=== PATIENT | female | born 1965 | race Caucasian/White ===

== ENCOUNTER 2018-04-08 14:22 | Inpatient (IN) | payer MEDICARE, MEDICAID ==
[~2018-04-08] VITALS: Ht 167.6 cm; Wt 59.0 kg
[2018-04-08] VITALS (11 sets, daily range): BP systolic 133–226; BP diastolic 71–110
[~2018-04-08 14:22] MED LIST: DOCU-141 PO; FOLI1TAB16 PO; GABA-534 PO; LEVO50TA PO; MULT-24 PO; SPIR25TA PO; THIA100T13 PO
--- NOTE | 2018-04-08 14:27 | NUR ---
[facility] HOME DT ALTERED MENTAL STATUS. PATIENT RECEIVED IN MILD DISTRESS, RESPONDS TO PAIN, OPENS EYES. DOES NOT RESPONDS PATIENT IS SATING 98% ON ROOM AIR. PATIENT IS AFEBRILE. CONNECTED PATIENT TO TELE MONITOR. PENDING MD EVALUATION
--- NOTE | 2018-04-08 14:29 | NUR ---
PATIENT NOTED WITH DEWEY CAST AND LUDY NOTED WITH OBVIOUS DEFORMITY. PER RESCUE REPORT, PT'S NEIGHBOR CALLED RESCUE DT PATIENT HAS NOT BEEN GOING OUT FOR 2 DAYS.
--- NOTE | 2018-04-08 14:29 | NUR ---
RT AT BS
[2018-04-08] MEDS ORDERED: LORAZEPAM INJ 2 MG/ML VIAL ONE (14:56)
[2018-04-08] MEDS ORDERED: IV NS 0.9% 1,000 ML BAG IV ONE ×2 (15:00→18:00)
[2018-04-08] MEDS ORDERED: diphenhydrAMINE HCL 50 MG/ML VIAL IV ONE (15:00)
[2018-04-08] MEDS ORDERED: LORAZEPAM INJ 2 MG/ML VIAL IV ONE (15:00)
[2018-04-08] MEDS ORDERED: HALOPERIDOL LACTATE INJ 5 MG/ML VIAL IM ONE (15:00)
[2018-04-08 15:19] LABS: BASOPHILS # (AUTO) 0.2 /CMM (0.0-0.2); BASOPHILS % (AUTO) 2.8 % (0.0-2.0); EOSINOPHILS % (AUTO) 0.1 % (0.0-6.0); HEMATOCRIT 42 % (33-45); LYMPHOCYTES % (AUTO) 12.6 % (20.0-44.0); MEAN CORPUSCULAR HGB CONC 34 g/dl (31.0-36.0); MEAN CORPUSCULAR VOLUME 110 fL (82-100); MONOCYTES # (AUTO) 0.8 /CMM (0.1-1.30); NEUTROPHILS # (AUTO) 6.3 /CMM (1.8-8.9); NEUTROPHILS % (AUTO) 74.5 % (43.0-81.0); PLATELET COUNT (AUTO) 97 /CMM (150-450); RDW COEFFICIENT OF VARIATION 14.6 (11.5-15.0); RED BLOOD CELL COUNT(AUTO) 3.78 MIL/uL (4.0-5.2); WHITE BLOOD COUNT (AUTO) 8.3 K/uL (4.3-11.0)
[2018-04-08] MEDS ORDERED: diphenhydrAMINE HCL 50 MG/ML VIAL ONE (15:24)
[2018-04-08] MEDS ORDERED: HALOPERIDOL LACTATE INJ 5 MG/ML VIAL ONE (15:24)
[2018-04-08 15:27] LABS: APPEARANCE,URINE Cloudy (CLEAR); BILIRUBIN,URINE Negative (NEGATIVE); BLOOD, URINE Negative Ery/uL (NEGATIVE); COLOR,URINE Dark (YELLOW); KETONES,URINE Trace (NEGATIVE); LEUKOCYTE ESTERASE ,URINE Trace (NEGATIVE); NITRITE, URINE Negative (NEGATIVE); PROTEIN,URINE Negative (NEGATIVE); UGLUCOSE Negative (NEGATIVE)
[2018-04-08 15:31] LABS: CALCIUM, SERUM 9.2 mg/dL (8.5-10.1); CARBON DIOXIDE 28 mmol/L (21-32); CHLORIDE 101 mmol/L (98-107); CREATININE 0.7 mg/dL (0.6-1.3); GLUCOSE 160 mg/dL (74-106); POTASSIUM 3.5 mmol/L (3.5-5.1); SODIUM SERUM 139 mmol/L (136-145); UREA NITROGEN, BLOOD 33 mg/dL (7-18)
--- NOTE | 2018-04-08 15:34 | NUR ---
PATIENT TAKEN TO CT
[2018-04-08 15:35] LABS: INR 1.2 (0.85-1.15)
[2018-04-08 15:36] LABS: ALANINE AMINOTRANSFERASE 119 U/L (12-78); ALBUMIN 2.7 g/dL (3.4-5.0); ALCOHOL, BLOOD < 3 mg/dL (0-0); ALKALINE PHOSPHATASE 122 U/L (46-116); ASPARTATE AMINOTRANSFERASE 214 U/L (15-37); BILIRUBIN,DIRECT 0.7 mg/dL (0.0-0.2); BILIRUBIN,TOTAL 2.5 mg/dL (0.2-1.0); TOTAL PROTEIN, SERUM 7.2 g/dL (6.4-8.2)
[2018-04-08 15:37] LABS: ACETAMINOPHEN 0 ug/ml (10-30); SALICYLATE < 0.2 mg/dL (2.8-20.0)
[2018-04-08 15:38] LABS: TROPONIN I 0.017 ng/mL (0.00-0.056)
[2018-04-08 15:58] LABS: BACTERIA,URINE 4+ /HPF (None Seen); RBC,URINE 0-2 /HPF (0-2); SQUAMOUS EPITHELIAL CELL,UR Rare /HPF (None Seen)
[2018-04-08 15:59] LABS: WBC,URINE 0-3 /HPF (0-3)
[2018-04-08 16:01] LABS: MAGNESIUM 1.8 mg/dL (1.8-2.4)
[2018-04-08 17:02] LABS: THYROID STIMULATING HORMONE 1.171 uIU/mL (0.358-3.74)
--- NOTE | 2018-04-08 17:13 | NUR ---
NG TUBE INSERTED VIA RIGHT NARE. 16FR. 55 AT THE R. NARE. TOLERATED WELL.
--- NOTE | 2018-04-08 17:15 | NUR ---
[facility], MARKETING REPRESENTATIVE
[2018-04-08] MEDS ORDERED: LACTULOSE 10 G/15 ML UDC (PYXIS) GT ONE (17:30)
[2018-04-08] MEDS ORDERED: PIPERACILLIN /TAZOBACTAM 3.375 G in IV D5W 50 ML IV ONE (17:30)
[2018-04-08] MEDS ORDERED: VANCOMYCIN 1 GM in IV D5W 250 ML IV ONE (17:30)
--- NOTE | 2018-04-08 17:37 | NUR ---
[facility]ALIDA 103 FOR ALTERED MENTAL STATUS, ADMITTING
[2018-04-08] MEDS ORDERED: LACTULOSE 10 G/15 ML UDC (PYXIS) ONE (17:48)
--- NOTE | 2018-04-08 18:14 | NUR ---
PATIENT SEEN BREATHING LABORED, O2 SATURATION IN 70'S. MD INFORMED, AT BEDSIDE, INSTRUCTED FOR INTUBATION.
--- NOTE | 2018-04-08 18:16 | NUR ---
PATIENT GIVEN ETOMIDATE 20MG AND ROCC 80MG VIA LEFT HAND, 18G IV. INTUBATED: 7.0 ET, 21CM AT THE LIP. VENT: AC16, TV500, FIO2 100, PEEP 5.
--- NOTE | 2018-04-08 18:18 | NUR ---
PATIENT WAS INTUBATED BY MD FIGUEROA. ET SIZE 7 21 AT THE LIP.
--- NOTE | 2018-04-08 18:27 | NUR ---
INTUBATED WITH 7.0 ET TUBE SECURED @ 21 CM CENTER OF THE LIPS. CO2 DETECTOR CHANGED TO GOLD COLOR POST INTUBATION. BREATH SOUNDS CLEAR BILATERAL WITH SYMMETRICAL CHEST RISE. FOG ON ET TUBE EACH RESUSCITATION BAG. VENT PARAMETERS BELOW ORDER: AC 16 VT 500ML FIO2 100% PEEP +5 VENT IS PLUGGED INTO RED OUTLET WITH ALARMS ON AND FUNCTIONING. WESTUBAG @ BEDSIDE. Addendum: 04/08/18 at 1834 by FELIPE VÁZQUEZ RT Amended: Links added.
[2018-04-08] MEDS ORDERED: Z GUARD REMEDY 2 OZ OINT TP PRN (18:30)
[2018-04-08] MEDS ORDERED: ZOLPIDEM TARTRATE 5 MG TABLET PO PRN (18:30)
[2018-04-08] MEDS ORDERED: ONDANSETRON HCL/PF 4 MG/2 ML VIAL IVP PRN (18:30)
--- NOTE | 2018-04-08 19:11 | NUR ---
RT PT RECEIVED INTUBATED WITH 7.0 @ 21CM ON [facility] VENT WITH NOTED SETTING. ETT PATENT AND SECURE VIA ANCHOR FAST. ALARMS SET AND AUDIBLE. VENT TO RED OUTLET. AMBU BAG AT [facility]. PT TOLERATING SETTING WELL. NO SOB OR DISTRESS NOTED AT THIS TIME. Addendum: 04/08/18 at 1913 by LYNDA FLORES RT Amended: Links added.
--- NOTE | 2018-04-08 19:33 | NUR ---
REPORT GIVEN TO COLBY BARRIGA FOR TED UPON ADMISSION.
--- NOTE | 2018-04-08 20:03 | NUR ---
PT RECEIVED INTUBATED ON VENT FROM ER. 7.0 ETT SECURED AT 21CM AT THE LIP. AC 16,500,100%, +5. VENT ALARMS SET AND AUDIBLE. TIFF SQUIRES AT [facility]. WILL CONTINUE TO MONITOR. Addendum: 04/08/18 at 2006 by VENITA ALFARO RT Amended: Links added.
[2018-04-08] MEDS: LACTULOSE 10 G/15 ML UDC (PYXIS) PO SCH (20:22)
[2018-04-08] MEDS: PANTOPRAZOLE 40 MG VIAL IV SCH (20:22)
[2018-04-08] MEDS: IV D5/0.45 NACL 1,000 ML IV PRN (20:22)
[2018-04-08 20:31] LABS: ABG BASE EXCESS 1.9 mmol/L; ABG OXYGEN SATURATION 98.9 % (92.0-98.5); ABG PH 7.303 (7.350-7.450); ABG PO2 369.5 mmHg (75.0-100.0); AaDO2 282.5 mmHg; MetHb 0.6 % (0.0-1.5); O2Hb 98.3 % (94.0-97.0); PEEP,BG 5 cm H2O; SITE, ABG Left Radial
--- NOTE | 2018-04-08 20:36 | NUR ---
ABG DONE POST INTUBATION. NITHYA LUKE NOTIFIED WITH THE RESULT. pH 7.30, pCO2 61, PaO2 369, HCO3 29. FIO2 TITRATED.
--- NOTE | 2018-04-08 21:00 | NUR ---
ASSISTANT COUNTY ENGINEER - REC'D PT. UNRESPONSIVE TO DEEP TACTILE STIM. NO BILAT. CORNEAL REFLEXES NOTED. MINIMAL GAG DURING SUCTIONING. AFEBRILE. SBP'S ARE LABILE, HR/ST/150'S. EKG DONE. SHOWS ST. DIPRIVAN GTT. STARTED. TITRATING TO COM -FORT. ABG DONE. VENT CHANGES TO AC-20, TV-500, 50% & PEEP 5. RT.NARES NGT IS PATENT TO FLUSH. 2 PIV'S ARE PATENT TO FLUSH. PUPILS ARE 6/SLIGHT SLUGGISH-ALMOST FIXED. BILAT.SOFT RESTRAINTS PLACED ON PT. PER SAFETY PROTOCOL. MCDONALD CATH TO GRAVITY W/GOOD UOP. RUE IS IN A RED CAST. LUE/SHOULDER IS LARGE/DEFORMED. PT'S SISTER JENNYFER PHONED. STATUS UPDATE GIVEN. INSIGHT INTO PT'S HX WAS VERIFIED. CONT.POC.
--- NOTE | 2018-04-08 21:05 | NUR ---
ICU/RN- ID [id number], SLIGHTLY LABORED, AGITATED,BP-213/86, HR-134, DIPRIVAN DRIP STARTED AT 5 MCG/KG/MIN VIA LEFT HAND, WILL MONITOR CLOSELY, USING THE NANNETTE SCALE.
[2018-04-08] MEDS: PROPOFOL 100 ML IV PRN (21:09)
--- NOTE | 2018-04-08 21:29 | NUR ---
ICU/RN-RESULTS OF ABGS DONE BY RT RELAYED TO ACNP Shravan GRIMALDO W/ JOSEONE ORDER TO INCREASE RR TO 20. RT LIZ NOTIFIED.
[2018-04-09] VITALS (48 sets, daily range): BP systolic 114–163; BP diastolic 59–85
--- NOTE | 2018-04-09 | NUR ---
WAX POT TENDER - LACTULOSE STARTED. 2ND BEDBATH ADM. DUE TO [employer] STOOL IS BLACK/STICKY/MELENA. NO BRIGHT RED BLOOD NOTED. CONT. POC.
[2018-04-09] MEDS: LACTULOSE 10 G/15 ML UDC (PYXIS) PO SCH ×6 (01:07→21:25)
[2018-04-09 02:19] LABS: ABG BASE EXCESS 2.4 mmol/L; ABG OXYGEN SATURATION 98.5 % (92.0-98.5); ABG PCO2 34.8 mmHg (35.0-45.0); ABG PH 7.485 (7.350-7.450); ABG PO2 196.2 mmHg (75.0-100.0); AaDO2 193.3 mmHg; COHb 0.3 % (0.5-1.5); MetHb 0.6 % (0.0-1.5); O2Hb 97.6 % (94.0-97.0); PEEP,BG 5 cm H2O; SITE, ABG Left Radial
--- NOTE | 2018-04-09 02:20 | NUR ---
STAT ABG ORDERED PER DILLAN. PT ON VENT AC 20, 500, 60%, +5. HR 149, SPO2 99%. ABG RESULT PH 7.48, PCO2 34, PaO2 196, HCO3 25. NOTIFIED NITHYA LUKE WITH RESULT. WILL TITRATE FIO2.
[2018-04-09] MEDS ORDERED: IV NS 0.9% 1,000 ML IV PRN (02:30)
[2018-04-09] MEDS ORDERED: CEFTRIAXONE 1 G VIAL ONE (02:55)
[2018-04-09] MEDS: CEFTRIAXONE 1 G in IV D5W 50 ML IV SCH (02:57)
[2018-04-09] MEDS: PROPOFOL 100 ML IV PRN ×2 (03:02→09:00)
[2018-04-09 04:54] LABS: ALBUMIN 1.7 g/dL (3.4-5.0); BILIRUBIN,TOTAL 1.2 mg/dL (0.2-1.0); CREATININE 0.7 mg/dL (0.6-1.3); MAGNESIUM 1.3 mg/dL (1.8-2.4); PHOSPHORUS 3.3 mg/dL (2.5-4.9); POTASSIUM 3.6 mmol/L (3.5-5.1); TOTAL PROTEIN, SERUM 4.7 g/dL (6.4-8.2)
[2018-04-09 05:04] LABS: THYROID STIMULATING HORMONE 0.833 uIU/mL (0.358-3.74)
[2018-04-09 06:29] LABS: BASOPHILS % (AUTO) 0.1 % (0.0-2.0); EOSINOPHILS % (AUTO) 0.9 % (0.0-6.0); HEMATOCRIT 27 % (33-45); HEMOGLOBIN 9.3 g/dL (11.5-14.8); MEAN CORPUSCULAR HGB CONC 34 g/dl (31.0-36.0); MEAN CORPUSCULAR VOLUME 111 fL (82-100); MONOCYTES # (AUTO) 3.2 /CMM (0.1-1.30); MONOCYTES % (AUTO) 42.1 % (2.0-12.0); NEUTROPHILS # (AUTO) 3.3 /CMM (1.8-8.9); NEUTROPHILS % (AUTO) 43.9 % (43.0-81.0); PLATELET COUNT (AUTO) 77 /CMM (150-450); RDW COEFFICIENT OF VARIATION 15.8 (11.5-15.0); RED BLOOD CELL COUNT(AUTO) 2.47 MIL/uL (4.0-5.2); WHITE BLOOD COUNT (AUTO) 7.6 K/uL (4.3-11.0)
--- NOTE | 2018-04-09 06:45 | NUR ---
DRYWALL APPLICATOR - SKY MENDEZ WAS PHONED DUE TO ST CONTINUING. SBP'S ARE IN THE 120-150'S. SBP'S ARE IN THE 120'S. FIO2 IS DOWN TO 40%. ORDERS REC'D. ONE LITER BOLUS 0.9%NS INFUSED. ATIVAN PRN NOTED & ROCEPHIN ONE GRAM IVPB INFUSED. NOTED. VERBAL REPORT ENDORSED TO MACY BARRIGA. CONT. POC.
--- NOTE | 2018-04-09 07:00 | NUR ---
RN NOTES RECEIVED PT ON BED, INTUBATED ON VENT 7.0 ETT SECURED AT 21CM AT THE LIP. AC 20 , TV 500, FIO2 40%, PEEP 5. O2 SAT 98%, ON TELE ST HR IN 120'S , MCDONALD DRINING TO GRAVITY WITH YELLOW URINE, R NARE NGT PATENT , AND INTACT, PROPOFOL AT 50 MCG/KG/MIN RUNNING VIA R HAND IV SITE G 18 , SITE CDI , D51/2 NS AT 75CC/HR RUNNING VIA L AC IV SITE , SR UP x3, BED LOCKED AND IN LOWEST POSITION, WILL CONTINUE TO MONITOR CLOSELY .
[2018-04-09] MEDS: PANTOPRAZOLE 40 MG VIAL IV SCH (08:19)
[2018-04-09] MEDS ORDERED: ETOMIDATE 2 MG/ML VIAL IV ONE (08:34)
[2018-04-09] MEDS ORDERED: ROCURONIUM BROMIDE 50 MG/5 ML IV ONE (08:34)
[2018-04-09 09:38] LABS: BAND % (MANUAL) 3 % (0.0-5.0); LYMPHOCYTES % (MANUAL) 19 % (16-48); MONOCYTES % (MANUAL) 31 % (0-11.0); NEUTROPHILS % (MANUAL) 47 (42-76)
--- NOTE | 2018-04-09 10:00 | NUR ---
RN NOTES RPOPOFAL GTT TURNED OFF , PT STILL UNRESPONSIVE. CONTINUE TO MONITOR .
[2018-04-09] MEDS: IV D5/0.45 NACL 1,000 ML IV PRN (10:10)
[2018-04-09] MEDS: Magnesium 1GM/D5W 100ML PREMIX 100 ML IV SCH ×2 (10:14→11:25)
--- NOTE | 2018-04-09 11:00 | NUR ---
RN NOTES DR SQUIRES NOTIFIED REGARDING AMMONIA LEVEL 191, CONTINUE TO MONITOR .
--- NOTE | 2018-04-09 12:00 | NUR ---
RN NOTES T=100.9 AXILLARY , COOLING MEASURES APPLIED, DR SQUIRES NOTIFED, CONTINUE TO MONITOR
--- NOTE | 2018-04-09 13:00 | NUR ---
RN NOTES T=98.6 AT AXILL[facility] AT THIS TIME , LARGE DARK COLOR LOOSE NOTED, CONTINUE TO MONITOR .
--- NOTE | 2018-04-09 14:33 | NUR ---
ASHLEY received a call from pt's sister Eden stating she is the next of kin for the pt. Eden resides in [facility] and would like to get an DPOA for health. ASHLEY explained to Eden that currently since pt. is intubated she would not be able to get one. ASHLEY explained to Eden pt. has to be alert and oriented to assign a DPOA. Eden understood. Eden wanted to speak to pt's RN and Doctor to inquire about pt's status. ASHLEY transferred call to ICU and requested for Eden to ask for pt's RN. Eden can be reached at .
[2018-04-09] MEDS ORDERED: OCTREOTIDE 1,250 MCG in IV NS 0.9% 247.5 ML IV PRN (16:30)
[2018-04-09] MEDS: RIFAXIMIN 550 MG TABLET PO SCH (16:37)
[2018-04-09] MEDS ORDERED: PANTOPRAZOLE 40 MG VIAL IV SCH (17:00)
--- NOTE | 2018-04-09 17:00 | NUR ---
RN NOTES LARGE DARK COLOR LOOSE STOOL NOTED , DR GILLESPIE NOTIFED , VSS STABLE , STOOL SAMPLE SENT TO LAB , CONTINUE TO MONITOR .
--- NOTE | 2018-04-09 18:44 | NUR ---
RN NOTES PT SABLE , HR IN 120'S, AT THIS TIME , NGT TO R NARE INTACT AND PATENT , MCDONALD DRAINING TO GRAVITY WITH YELLOW CLEAR URINE, SR UP x3, CALL LIGHT WITHIN EASY REACH, BED LOCKED AND IN LOWEST POSITION , WILL ENDORSE TO PM NURSE FOR TED .
--- NOTE | 2018-04-09 19:00 | NUR ---
MOTORBOAT MECHANIC INBOARD NOTES Received patient orally intubated on the ventilator on AC mode,obtunded,responds to deep pain,+ strong cough and gag.Grimaces to pain ,withdraws extremities to pain.On Sandostatin drip via left arm PIV.NGT clamped .Vázquez cath to gravity drainage.Comfort care done.Seems a little tacypneic with episode of sighlty labored breathing when simulated and agitated.
--- NOTE | 2018-04-09 19:38 | NUR ---
PT RECEIVED ORALLY INTUBATED 7.0 ETT SECURED @21 CM AT THE LIP, WITH NOTED SETTINGS, AC 20,500 ,PEEP 5 , 40% . VENT ALARMS SET AND AUDIBLE. AMBU BAG AT [facility]. SUCTIONED SMALL AMOUNT OF [place] THICK SECRETIONS. NO RESPIRATORY DISTRESS NOTED AT THIS TIME. WILL CONTINUE TO MONITOR.
[2018-04-09 20:19] LABS: OCCULT BLOOD STOOL POSITIVE (NEGATIVE)
[2018-04-10] VITALS (48 sets, daily range): BP systolic 107–183; BP diastolic 50–113
--- NOTE | 2018-04-10 | NUR ---
IMPORT CUSTOMER SERVICE MANAGER NOTES Status unchanged ,but more responsive now,responds to pain,grimaces,+ strong cough,withdraws arms and legs to pain,occassionally slightly opens eyes..Febrile,cooling measures done.Still on Octreotide drip,no S/S of bleeding noted. Will maintain NPO ,patient for EGD in am.Continue Lactulose,.
[2018-04-10] MEDS: LACTULOSE 10 G/15 ML UDC (PYXIS) PO SCH ×6 (01:06→20:16)
[2018-04-10] MEDS: IV D5/0.45 NACL 1,000 ML IV PRN ×2 (01:34→13:07)
[2018-04-10] MEDS: CEFTRIAXONE 1 G in IV D5W 50 ML IV SCH (02:54)
[2018-04-10] MEDS: LORAZEPAM INJ 2 MG/ML VIAL IV PRN ×3 (03:52→21:09)
--- NOTE | 2018-04-10 04:00 | NUR ---
SHUTTLER CAR NOTES Am care done,lethargic,responsive to pain,.afebrile. 0630 Endoscopy team at bedside ,getting set up for bedside EGD..
[2018-04-10] MEDS ORDERED: ANESTHESIA TRAY IN PYXIS 1 EA TRAY MC ONE (06:07)
--- NOTE | 2018-04-10 07:00 | NUR ---
PHARMACY TECHNICIAN TRAINEE YE Report given to Meliza BARRIGA.
--- NOTE | 2018-04-10 07:35 | NUR ---
ICU/RN PT IS INTUBATED ON THE VENT AC MODE.OFF SEDATION .SR-ST HR-105 BPM ON MONITOR..V/S STABLE,AFEBRILE.PT IS LETHARGIC.RESPONSIVE ON PAIN STIMULATION ONLY.PERIFERAL IV.IV INFUSING ORDERED.NG TUBE CLAMPED.F/C DRAINING WITH ARNALDO URINE .RIGHT UPPER ARM CAST. LEFT ARM SWOLLEN.SUCTION PROVIDED.PT HAS TICK YELLOW SECRETION.PT IS HAVING EGD
[2018-04-10 07:52] LABS: CALCIUM, SERUM 7.8 mg/dL (8.5-10.1); CREATININE 0.6 mg/dL (0.6-1.3); MAGNESIUM 2.1 mg/dL (1.8-2.4); POTASSIUM 3.5 mmol/L (3.5-5.1)
[2018-04-10 07:56] LABS: EOSINOPHILS % (AUTO) 0.2 % (0.0-6.0); HEMATOCRIT 28 % (33-45); HEMOGLOBIN 9.4 g/dL (11.5-14.8); LYMPHOCYTES % (AUTO) 10.4 % (20.0-44.0); MEAN CORPUSCULAR HGB CONC 34 g/dl (31.0-36.0); MEAN CORPUSCULAR VOLUME 112 fL (82-100); MONOCYTES # (AUTO) 1.6 /CMM (0.1-1.30); MONOCYTES % (AUTO) 16.7 % (2.0-12.0); NEUTROPHILS % (AUTO) 72.7 % (43.0-81.0); PLATELET COUNT (AUTO) 86 /CMM (150-450); RDW COEFFICIENT OF VARIATION 16.4 (11.5-15.0); RED BLOOD CELL COUNT(AUTO) 2.47 MIL/uL (4.0-5.2); WHITE BLOOD COUNT (AUTO) 9.7 K/uL (4.3-11.0)
[2018-04-10] MEDS: PANTOPRAZOLE 40 MG VIAL IV SCH ×2 (08:38→16:34)
[2018-04-10] MEDS: RIFAXIMIN 550 MG TABLET PO SCH ×2 (08:38→16:34)
[2018-04-10 09:17] LABS: BAND % (MANUAL) 2 % (0.0-5.0); LYMPHOCYTES % (MANUAL) 9 % (16-48); MONOCYTES % (MANUAL) 14 % (0-11.0); NEUTROPHILS % (MANUAL) 75 (42-76)
--- NOTE | 2018-04-10 12:00 | NUR ---
ICU/RN DUE MEDS ARE GIVEN ORDERED.V/S STABLE,AFEBRILE.PT IS NOT OPEN HER EYES , REACTIVE ON PAIN STIMULATION LEFT ARM SWOLLEN,NEED IV ACCESS.RIGHT UPPER ARM HAS CAST.PICC LINE INSERTED ON THE LEFT UPPER ARM ORDERED.PT TOLERATED PROCEDURE WELL.
--- NOTE | 2018-04-10 17:36 | NUR ---
ICU/RN PT IS AGITATED HR UP TO 122 BPM,BP INCREASED, NOT FOLLOWS COMMAND .ATIVAN 2 MG IV GIVEN ORDERED.PM CARE PROVIDED.REPOSITION FOR COMFORT.
--- NOTE | 2018-04-10 19:30 | NUR ---
RN NOTE RECEIVED PATIENT IN THE BED, CLOSED EYES, NOT FOLLOWING COMMANDA, ABLE TO MOVE LOWER EXTREMITIES, ST ON THE MONITOR, ALL SAFETY MEASURES TAKEN, WILL CONTINUE TO MONITOR PATIENT
[2018-04-11] VITALS (45 sets, daily range): BP systolic 112–183; BP diastolic 49–115
[2018-04-11] MEDS: LORAZEPAM INJ 2 MG/ML VIAL IV PRN ×3 (01:13→21:37)
[2018-04-11] MEDS: LACTULOSE 10 G/15 ML UDC (PYXIS) PO SCH ×6 (01:13→21:06)
[2018-04-11] MEDS ORDERED: PROPOFOL 100 ML ONE (02:09)
[2018-04-11] MEDS: PROPOFOL 100 ML IV PRN ×2 (02:17→15:55)
[2018-04-11] MEDS: CEFTRIAXONE 1 G in IV D5W 50 ML IV SCH (02:21)
[2018-04-11] MEDS: IV D5/0.45 NACL 1,000 ML IV PRN ×2 (02:22→16:39)
[2018-04-11 05:10] LABS: BASOPHILS % (AUTO) 0.1 % (0.0-2.0); EOSINOPHILS % (AUTO) 1.4 % (0.0-6.0); HEMATOCRIT 25 % (33-45); HEMOGLOBIN 8.6 g/dL (11.5-14.8); LYMPHOCYTES # (AUTO) 1.2 /CMM (0.8-4.8); MEAN CORPUSCULAR HGB CONC 34 g/dl (31.0-36.0); MEAN CORPUSCULAR VOLUME 113 fL (82-100); MONOCYTES # (AUTO) 1.2 /CMM (0.1-1.30); MONOCYTES % (AUTO) 15.6 % (2.0-12.0); NEUTROPHILS # (AUTO) 5.1 /CMM (1.8-8.9); NEUTROPHILS % (AUTO) 66.9 % (43.0-81.0); PLATELET COUNT (AUTO) 71 /CMM (150-450); RDW COEFFICIENT OF VARIATION 16.8 (11.5-15.0); RED BLOOD CELL COUNT(AUTO) 2.22 MIL/uL (4.0-5.2); WHITE BLOOD COUNT (AUTO) 7.6 K/uL (4.3-11.0)
[2018-04-11 05:51] LABS: CALCIUM, SERUM 7.9 mg/dL (8.5-10.1); CREATININE 0.5 mg/dL (0.6-1.3); MAGNESIUM 1.8 mg/dL (1.8-2.4)
[2018-04-11 06:01] LABS: POTASSIUM 2.6 mmol/L (3.5-5.1)
--- NOTE | 2018-04-11 06:10 | NUR ---
RN NOTE RECEIVED CALL FROM THE LAB FOR CRITICAL POTASSIUM OF 2.6, NOTIFIED DILLAN SWANSON NP, NEW ORDER OF POTASSIUM 60 MEQ IV GIVEN, WILL PLACED AND ORDER AND FOLLOW UP WITH THE PHARMACY
[2018-04-11] MEDS: POTASSIUM CL. PREMIX PERIPHER. 50 ML IV SCH ×8 (06:50→14:40)
--- NOTE | 2018-04-11 07:59 | NUR ---
HAMMERER HELPER NOTE PATIENT IN BED WITH BOTH EYES CLOSED LETHARGIC,WITH ETT TUBE TO VENT SETTING ORDERED ON PROPOFOL DRIP ORDERED ,STILL TAVON TO MOVE BOTH LOWER EXTREMITIES , ON TELE MONITOR SB TO SR , WITH NG TUBE IN PLACE WITH MCDONALD CATH TO GRAVITY WITH YELLOW COLOR URINE, ON IVF ORDERED , BED IN LOWEST AND LOCKED POSITION WILL CONT TO MONITOR CLOSELY
[2018-04-11] MEDS: PANTOPRAZOLE 40 MG VIAL IV SCH ×2 (08:18→16:28)
[2018-04-11] MEDS: RIFAXIMIN 550 MG TABLET PO SCH ×2 (08:19→16:28)
--- NOTE | 2018-04-11 09:00 | NUR ---
MED ADMIN NOTE SPOKE WITH DR MCCURDY CLARIFIED DOSE OF KCL ,STATED THAT WANT TO ORDER 80 KCL MEQ NOTIFIED THAT DILLAN ZAMORA RN EQUIPMENT MECHANIC SPECIALIST ORDERED 60 ALREADY MEQ ,STATED THAT GIVE ADDITIONAL 20MEQ KCL, ALL TOGETHER 80 MEQ OF KCL, WILL F\U
--- NOTE | 2018-04-11 09:00 | NUR ---
ADMINISTRATIVE AND PROGRAM SPECIALIST NOTE STARTED ON DIPRIVAN VACATION PER HOSPITAL PROTOCOL ,WHEN CALL PATENT NAME BECOME VERY AGITATED AND TRYING TO OPEN BOTH EYES ,RESPONSE TO TACTILE AND STIMULI
[2018-04-11 09:01] LABS: ABG BASE EXCESS 0.2 mmol/L; ABG OXYGEN SATURATION 98.2 % (92.0-98.5); ABG PCO2 34.2 mmHg (35.0-45.0); ABG PO2 145.8 mmHg (75.0-100.0); AaDO2 100.1 mmHg; COHb 0.3 % (0.5-1.5); MetHb 0.5 % (0.0-1.5); O2Hb 97.4 % (94.0-97.0); SITE, ABG Left Radial; VENT MODE, BG AC 20 500 40% +5
--- NOTE | 2018-04-11 09:13 | NUR ---
ACID FILLER NOTE PATIENT BECOME VERY AGITATED AND TRYING TO BITE ETT TUBE AND COUGH AND ALSO TRYING TO GET OU OFF DIPRIVAN SEDATION RESTARTED
--- NOTE | 2018-04-11 11:30 | NUR ---
FUR SORTER NOTE SPOKE WITH DR MOORE ABOUT DIPRIVAN DRIP , NOTIFIED THAT PATIENT VERY RESTLESS AND AGITATED WHEN DRIP STOPPED ,STATED OK WITH LOW DOSE, POSSIBLE EXTUBATE TOMORROW ALSO NO NG TUBE FEEDING TODAY ,WILL F\U TOMORROW
--- NOTE | 2018-04-11 12:00 | NUR ---
SERGING MACHINE OPERATOR AUTOMATIC NOTE PATIENT ON DIPRIVAN DRIP CHANGED TO 15 MC\KG\MIN , PATIENT RESTING COMFORTABLY AT THIS TIME WILL CONT TO MONITOR CLOSELY
--- NOTE | 2018-04-11 13:00 | NUR ---
CONDUCTOR YARD NOTE NOTED PATIENT INCREASED AGITATION AND RESTLESS,TRYING TO REMOVE ALL LINENS AND MCDONALD INCREASED TO 20 MC\KG\MIN PER HOSPITAL PROTOCOL TITRATING Addendum: 04/11/18 at 1502 by MALIA LILLY RN STILL ON 20 MC\KG\,SLEEPING BUT AROUSABLE TO TACTILE AND PAINFUL STIMULI BUR SQUEEZING BOTH EYES AND MOVING HEAD
--- NOTE | 2018-04-11 14:26 | NUR ---
DIRECTOR CHANNEL NOTE AT RISK TO REMOVED ALL LINES, ETT TUBE AND MCDONALD CATH ,SOFT RESTART APPLIED TOLERATED , WILL F\U
--- NOTE | 2018-04-11 15:32 | NUR ---
ICU RNNNOTE NOTED RESTLESS AND AGITATED TRYING TO REMOVE LINENS, ATIVAN IVP GIVEN ORDERED BP 142/76 SAT 100 %
--- NOTE | 2018-04-11 18:34 | NUR ---
GROUND SUPPORT EQUIPMENT MECHANIC NOTE CONT ON DIPRIVAN DRIP, ORDERED ,NO AGITATION NOTED, SAT 100% , WILL CONT TO MONITOR CLOSELY
--- NOTE | 2018-04-11 19:20 | NUR ---
CARBON CLEANER NOTE RECEIVED PATIENT WITH HOB ELEVATED IN BED, RESTLESS, SPONTANEOUS MOVEMENT, LETHARGIC, EYES CLOSED, ETT TUBE TO VENT ON SETTINGS ORDERED, NG TUBE CLAMPED, PATENT FLUSHING WELL, LEFT ARM SOFT WRIST RESTRAINT IN PLACE, NO SKIN ISSUES NOTED, LUDY PICC LINE PATENT FLUSHING WELL, SITE CDI, PROPOFOL DRIP ORDERED, D5 1/2NS AT 75 ML/HR ORDERED. R LOWER LEG #20G SL, PATENT, FLUSHING WELL, SITE CDI, MCDONALD CATHETER DRAINING TO GRAVITY YELLOW URINE, SAFETY MAINTAINED AT ALL TIMES, BED IN LOW LOCKED POSITION, CALL LIGHT WITHIN REACH. WILL CONTINUE TO MONITOR FOR ANY CHANGES IN CONDITION.
[2018-04-12] VITALS (37 sets, daily range): BP systolic 111–166; BP diastolic 53–93
[2018-04-12] MEDS: LACTULOSE 10 G/15 ML UDC (PYXIS) PO SCH ×4 (01:35→21:27)
[2018-04-12] MEDS: CEFTRIAXONE 1 G in IV D5W 50 ML IV SCH (01:35)
[2018-04-12] MEDS: LORAZEPAM INJ 2 MG/ML VIAL IV PRN ×3 (01:35→06:22)
[2018-04-12] MEDS: PROPOFOL 100 ML IV PRN (04:34)
--- NOTE | 2018-04-12 05:00 | NUR ---
BUSINESS FUNCTIONAL ANALYST NOTE PATIENT TITRATED DOWN PROPOFOL TO 20 MCG/KG/MIN, WILL CONTINUE TO MONITOR FOR ANY CHANGES IN CONDITION.
--- NOTE | 2018-04-12 06:00 | NUR ---
HOTEL SERVICE MANAGER NOTE PATIENT TITRATED DOWN PROPOFOL TO 15 MCG/KG/MIN, WILL CONTINUE TO MONITOR FOR ANY CHANGES IN CONDITION.
[2018-04-12] MEDS: IV D5/0.45 NACL 1,000 ML IV PRN (06:16)
--- NOTE | 2018-04-12 07:00 | NUR ---
PROOFER NOTE PATIENT TITRATED DOWN PROPOFOL TO 10 MCG/KG/MIN, WILL CONTINUE TO MONITOR FOR ANY CHANGES IN CONDITION.
--- NOTE | 2018-04-12 07:30 | NUR ---
OIL EXTRACTOR NOTE PATIENT IN BED, WITH ETT TUBE ORDERED TO VENT SETTING CONFUSED AND RESTLESS TRYING TO GET OUT OFF BED ,WITH SOFT REFRAIN ON LT ARM IN USE , RESPONSE TO TACTILE STIMULI , BOTH EYES STILL CLOSED WHEN CALLING HER NAME , ON DIPRIVAN 10 MC\KG\MIN ON TELE MONITOR SR 84 , WITH N G TUBE IN PLACE CLUMPED , WITH MCDONALD CAT TO GRAVITY WITH ARNALDO COLOR , ON NPO STATUS , ON IVF ORDERED ON LT UPPER ARM PICC LINE , BED IN LOWEST AND LOCKED POSITION , WILL CONT TO MONITOR CLOSELY
--- NOTE | 2018-04-12 07:35 | NUR ---
AGRICULTURAL EDUCATION TEACHER NOTE DECREASED RATE OF DIPRIVAN TO 5 MC\KG\MIN, PATIENT WILL BE ON DIPRIVAN VACATION , WITH POSSIBLE EXTUBATION TODAY
--- NOTE | 2018-04-12 07:40 | NUR ---
SOLUTION MAKE UP OPERATOR NOTE WILL HOLD DIOVAN DRIP AT THIS TIME , PATENT BECOME MORE ALERT AND RESTLESS , RESPONSE TO PAINFUL AND TACTILE STIMULI , STILL NOT TRYING TO OPEN HER EYES WHEN CALLING HER NAME , WILL F\U
--- NOTE | 2018-04-12 07:49 | NUR ---
PRECINCT COMMANDING OFFICER NOTE STOPPED DIPRIVAN DRIP , PATIENT PER RT WILL BE POSSIBLE EXTUBATE TODAY
[2018-04-12] MEDS: RIFAXIMIN 550 MG TABLET PO SCH ×2 (08:04→16:22)
[2018-04-12] MEDS: PANTOPRAZOLE 40 MG VIAL IV SCH ×2 (08:04→16:22)
--- NOTE | 2018-04-12 08:10 | NUR ---
RT PER DR MOORE ORDERS PATIENT PLACED ON VENT WEANING TRIAL. PATIENT ORALLY INTUBATED ON MECH VENT. VENT ALARMS CHECKED + AUDIBLE. CUFF PRESSURE CHECKED TEACHER VISUALLY IMPAIRED. SX'D WITH SMALL AMT PALE SEMITHICK SECRETIONS. AMBU BAG AT HOB Addendum: 04/12/18 at 0812 by ELE GUERRERO RT Amended: Links added.
--- NOTE | 2018-04-12 08:15 | NUR ---
GRAIN ORIGINATION SPECIALIST NOTE PATIENT BECOME MORE RESTLESS TRYING TO REMOVE ALL LINES AND GET OUT OFF BED , SOFT RESTRAIN IN PLACE FOR PANT SAFETY , FOLLOW VERY SIMPLE COMMAND
[2018-04-12 09:06] LABS: BASOPHILS % (AUTO) 0.1 % (0.0-2.0); EOSINOPHILS % (AUTO) 4.2 % (0.0-6.0); HEMATOCRIT 25 % (33-45); HEMOGLOBIN 8.1 g/dL (11.5-14.8); LYMPHOCYTES # (AUTO) 1.2 /CMM (0.8-4.8); LYMPHOCYTES % (AUTO) 16.3 % (20.0-44.0); MEAN CORPUSCULAR HGB CONC 33 g/dl (31.0-36.0); MEAN CORPUSCULAR VOLUME 113 fL (82-100); MONOCYTES % (AUTO) 14.1 % (2.0-12.0); NEUTROPHILS # (AUTO) 4.8 /CMM (1.8-8.9); NEUTROPHILS % (AUTO) 65.3 % (43.0-81.0); PLATELET COUNT (AUTO) 69 /CMM (150-450); RDW COEFFICIENT OF VARIATION 16.2 (11.5-15.0); RED BLOOD CELL COUNT(AUTO) 2.18 MIL/uL (4.0-5.2); WHITE BLOOD COUNT (AUTO) 7.3 K/uL (4.3-11.0)
[2018-04-12 09:16] LABS: CALCIUM, SERUM 8.1 mg/dL (8.5-10.1); CREATININE 0.4 mg/dL (0.6-1.3)
[2018-04-12 09:32] LABS: ABG BASE EXCESS -1.8 mmol/L; ABG OXYGEN SATURATION 97.9 % (92.0-98.5); ABG PCO2 28.2 mmHg (35.0-45.0); ABG PH 7.487 (7.350-7.450); ABG PO2 131.5 mmHg (75.0-100.0); AaDO2 121.3 mmHg; COHb 0.3 % (0.5-1.5); MetHb 0.6 % (0.0-1.5); PEEP,BG 5 cm H2O; SITE, ABG Left Radial
--- NOTE | 2018-04-12 09:57 | NUR ---
SYSTEMS LIBRARIAN NOTE RT AT BEDSIDE ,ABG DONE ORDERED ,WILL F\U
--- NOTE | 2018-04-12 11:34 | NUR ---
FIRE WATCHER NOTE SEEN BY DR MOORE, OK TO EXTUBATE TODAY, RT WILL F\U ,ALSO SEEN BY DR STOUT NOTIFIED THAT URINE OUTPUT ABOUT 100 ML SINCE 0700 IN AM ,STATED OK TO GIVE 1L OF NS BOLUS , ALSO SPOKE WITH DOCTOR ABOUT LACTULOSE, OK TO START LACTULOSE Q12 HOUR WILL F\U
--- NOTE | 2018-04-12 11:35 | NUR ---
PER DR MOORE PATIENT EXTUBATED AND PLACED ON 5L N/C NIXON WELL.
[2018-04-12] MEDS: POTASSIUM CL. PREMIX PERIPHER. 50 ML IV SCH ×4 (11:57→15:43)
[2018-04-12] MEDS ORDERED: IV NS 0.9% 1,000 ML IV PRN (12:00)
--- NOTE | 2018-04-12 14:00 | NUR ---
FOOD BEVERAGE ATTENDANT NOTE \ SAT 94% ON 5L NC, NO SOB NOTED , KEEP CLEAN DRY , ALL NEEDS ATTENDED, STILL VERY RESTLESS SPOKE WITH DR MOORE ABOUT ATIVAN, STATED TO HOLD OFF FOR NOW , WILL CONT TO MONITOR CLOSELY
--- NOTE | 2018-04-12 15:40 | NUR ---
CABLE INSTALLATION TECHNICIAN NOTE\ UNABLE TO REMOVE RESTRAIN, PATIENT VERY RESTLESS AND TRYING TO GET OUT OFF BED AT RISK FOR FALL , WILL CONT TO MONITOR CLOSELY
[2018-04-12] MEDS: SUCRALFATE 1 G/10 ML UDC GT SCH ×2 (17:16→21:27)
[2018-04-12] MEDS ORDERED: ACETAMINOPHEN 650 MG/20.3 ML UDC GT PRN (17:30)
--- NOTE | 2018-04-12 17:30 | NUR ---
TRAFFIC EXPERT NOTE \ CALLED TO DR STOUT NOTIFIED PEREZ PER FAMILY PATIENT WAS HAVVY SMOKER , WANTS TO START NICOTINE PATCH ALSO PATIENT FAMILY PREFERRED TO START N G TUBE FEEDING TOLERATED AT THIS TIME AND C\O GENERALIZED PAIN ON BODY , DR STOUT ORDERED NICY TON PACH DAILY , TYLENOL PRN AND START JEVITY VIA N GTUBE AT 20 ML PER HOUR MAX DOSE 60 ML AND ORDERED SWALLOW EVAL Addendum: 04/12/18 at 1839 by MALIA LILLY RN NICOTINE PATCH ORDERED
[2018-04-12] MEDS: NICOTINE PATCH (14MG) 14 MG PATCH.TD24 TD SCH (17:34)
--- NOTE | 2018-04-12 18:20 | NUR ---
PIZZA HUT ASSISTANT NOTE \ CALLED TO DR STOUT ,LEFT A MASSAE TO CHIEF CUSTOMER OFFICER, NOTED LT ARM SWOLLEN, KEEP ELEVATED TOLERATED
[2018-04-12] MEDS: JEVITY 1.2 CAL 1,000 ML BOTTLE GT PRN (18:39)
--- NOTE | 2018-04-12 18:45 | NUR ---
MORTGAGE LOAN OFFICER ORIGINATOR NOTE \ STARTED N GTUBE FEEDING ORDERED
--- NOTE | 2018-04-12 19:00 | NUR ---
CYLINDER PRESS OPERATOR NOTE DR MCCURDY DID NOT CALL BACK YET ,ENDORSED TO NEXT SHIFT NITHYA SALDAÑA TO FOLLOW UP
--- NOTE | 2018-04-12 19:01 | NUR ---
STOCK ROLLER NOTE \ KOMAL Mcgee G TUBE FEEDING PATIENT SLIDE DOWN AT RISK FOR ASPIRATION , REPOSITION DONE ,WILL ENDORSE NEXT SHIT Addendum: 04/14/18 at 1051 by MALIA LILLY RN BLANCA SIMPSON
--- NOTE | 2018-04-12 20:00 | NUR ---
SECURITIES LENDING TRADER NOTE RECEIVED PT IN BED RESTLESS, MOVING HER LOWER EXT'S UP AND DOWN AND ALSO OUT OF BED ON TOP OF SIDE RAILS. SOFT WRIST RESTRAINT ON ON LT WRIST. RT ARM WITH CAST ON. NO SOB, NO DISTRESS OR DISCOMFORT NOTED. IVF D5 1/2 NS INFUSING AT 75 ML/HR, 0 ML RESIDUAL NOTED. KEPT HER HOB ELEVATED BUT PT KEPT ON SLIDING DOWN IN BED. KEPT HER DRY AND CLEAN. ON TELE MONITOR SR HR 92. F/C INTACT AND PATENT DRAINING YELLOWISH COLOR URINE. KEPT HER DRY AND CLEAN. ALL NEEDS ATTENDED. SIDE RAILS UP X 3 AND CALL LIGHT WITH IN REACH. VSS. CONTINUE TO MONITOR HER.
[2018-04-13] VITALS (25 sets, daily range): BP systolic 103–174; BP diastolic 42–116
[2018-04-13] MEDS: IV D5/0.45 NACL 1,000 ML IV PRN ×2 (01:31→17:03)
[2018-04-13] MEDS: CEFTRIAXONE 1 G in IV D5W 50 ML IV SCH (02:25)
--- NOTE | 2018-04-13 03:00 | NUR ---
GARAGE DOOR HANGER NOTE PT REMAIN RESTLESS. MOVING HER LEGS AROUND IN BED. B/P CUFF IS ON LT LOWER LEG. CONTINUE TO MONITOR HER CLOSELY.
--- NOTE | 2018-04-13 04:50 | NUR ---
J2EE PROGRAMMER NOTE BED BATH GIVEN. PT IS C/O PAIN IN LT UPPER ARM WHICH HAS DEFORMITY AND SWOLLEN. INFORMED PIE CUTTER DILLAN AND RECEIVED NEW ORDER OF STAT X RAY DONE.
--- NOTE | 2018-04-13 04:55 | NUR ---
HYDRAULIC PRESS TENDER NOTE X RAY RESULT CAME NO FX. IT IS OLD HEALED FX. PT IS STILL MOVING AROUND IN BED. NO DISTRESS OR DISCOMFORT NOTED.
[2018-04-13 05:15] LABS: BASOPHILS % (AUTO) 0.2 % (0.0-2.0); EOSINOPHILS % (AUTO) 3.4 % (0.0-6.0); HEMATOCRIT 23 % (33-45); HEMOGLOBIN 7.8 g/dL (11.5-14.8); LYMPHOCYTES # (AUTO) 1.2 /CMM (0.8-4.8); LYMPHOCYTES % (AUTO) 16.2 % (20.0-44.0); MEAN CORPUSCULAR HGB CONC 34 g/dl (31.0-36.0); MEAN CORPUSCULAR VOLUME 112 fL (82-100); MONOCYTES # (AUTO) 1.1 /CMM (0.1-1.30); MONOCYTES % (AUTO) 15.3 % (2.0-12.0); NEUTROPHILS # (AUTO) 4.8 /CMM (1.8-8.9); NEUTROPHILS % (AUTO) 64.9 % (43.0-81.0); PLATELET COUNT (AUTO) 77 /CMM (150-450); RDW COEFFICIENT OF VARIATION 15.4 (11.5-15.0); RED BLOOD CELL COUNT(AUTO) 2.04 MIL/uL (4.0-5.2); WHITE BLOOD COUNT (AUTO) 7.3 K/uL (4.3-11.0)
[2018-04-13 05:35] LABS: CALCIUM, SERUM 7.8 mg/dL (8.5-10.1); CREATININE 0.3 mg/dL (0.6-1.3); PHOSPHORUS 2.3 mg/dL (2.5-4.9); POTASSIUM 2.9 mmol/L (3.5-5.1)
[2018-04-13 05:39] LABS: MAGNESIUM 1.2 mg/dL (1.8-2.4)
[2018-04-13 06:24] LABS: LYMPHOCYTES % (MANUAL) 15 % (16-48); MONOCYTES % (MANUAL) 17 % (0-11.0); NEUTROPHILS % (MANUAL) 64 (42-76)
[2018-04-13 06:25] LABS: EOSINOPHILS % (MANUAL) 4 % (0-4)
--- NOTE | 2018-04-13 06:52 | NUR ---
ASSISTANT PASSENGER LOCOMOTIVE ENGINEER NOTE CHARGE INFORMED ME ABOUT THE LAB RESULT OF MAG `1.2 AND K 2.9 PAGE TWICE PAIN MANAGEMENT NURSE. WAITING FOR HER CALL BACK. PT IN BED REMAIN MOVING HER LEGS. NO DISTRESS OR DISCOMFORT NOTED. IVF INFUSING WELL, NO S/S OF INFILTRATION NOTED. KEPT HER DRY AND CLEAN. ON TELE MONITOR SR 90'S. SOFT WRIST RESTRAINTS ON LT WRIST ONLY. F/C INTACT AND PATENT DRAINING ARNALDO COLOR URINE. SIDE RAILS UP X 3 AND CALL LIGHT WITHIN REACH. WILL ENDORSE TO DAY SHIFT NURSE FOR CONTINUE TO CARE.
--- NOTE | 2018-04-13 07:00 | NUR ---
RN NOTES RECEIVED PT ON BED, ALERT/ CONFUSED , RESTLESS, ON 5L O2 N/C , RESPIRATION EVEN AND UNLABORED, NO SOB NOTED, ON TELE HR IN 90'S , SR , SOFT WRIST RESTRAINT ON LT WRIST FOR PT PROTECTION , PT TRIES TO GET NGT OUT AT TIMES , IVF D5 1/2 NS INFUSING AT 75 ML/HR VIA L ARM PICC LINE , SITE CDI, TF AT 20CC/HR RESTATED , KEPT HOB ELEVATED , MCDONALD DRAINING TO GRAVITY WITH YELLOW URINE. ALL NEEDS ATTENDED. BED LOCKED AND IN LOWEST POSITION , SIDE RAILS UP X 3 , CALL LIGHT WITHIN EASY REACH. CONTINUE TO MONITOR CLOSELY .
[2018-04-13] MEDS: LACTULOSE 10 G/15 ML UDC (PYXIS) PO SCH ×2 (08:20→21:56)
[2018-04-13] MEDS: Z GUARD REMEDY 2 OZ OINT TP SCH (08:21)
[2018-04-13] MEDS: RIFAXIMIN 550 MG TABLET PO SCH ×2 (08:21→16:24)
[2018-04-13] MEDS: SUCRALFATE 1 G/10 ML UDC GT SCH ×4 (08:21→21:56)
[2018-04-13] MEDS: PANTOPRAZOLE 40 MG VIAL IV SCH ×2 (08:21→16:54)
--- NOTE | 2018-04-13 08:30 | NUR ---
RN NOTES DR. SQUIRES AND DR MOORE NOTIFED REGRADING K=2.9, MG =1.2 AND PHOS =2.3. NEW ORDER RECEIVED FROM DR MOORE .CONTINUE TO MONITOR
[2018-04-13] MEDS ORDERED: NEUTRA PHOS 1 POWD.PACKET GT ONE (09:30)
[2018-04-13] MEDS ORDERED: POTASSIUM CHLORIDE 20 MEQ POWDER PACKET GT SCH (09:30)
[2018-04-13] MEDS: Magnesium 1GM/D5W 100ML PREMIX 100 ML IV SCH ×4 (09:45→12:59)
[2018-04-13] MEDS: NICOTINE PATCH (14MG) 14 MG PATCH.TD24 TD SCH (09:45)
[2018-04-13] MEDS: POTASSIUM CHLORIDE 20 MEQ POWDER PACKET GT SCH ×2 (09:46→13:39)
[2018-04-13] MEDS ORDERED: Magnesium 1GM/D5W 100ML PREMIX 100 ML IV SCH (10:00)
[2018-04-13] MEDS ORDERED: POTASSIUM CL. PREMIX PERIPHER. 50 ML IV SCH (10:00)
--- NOTE | 2018-04-13 13:47 | NUR ---
RN NOTES NGT D/CE'D PER DR SQUIRES ORDER , AWAITING FOR SWALLOWING EVAL .
--- NOTE | 2018-04-13 13:59 | NUR ---
RN NOTES PT FAILIED SWALLOWING EVAL , WILL STAY NPO AT THIS TIME ,
[2018-04-13] MEDS: JEVITY 1.2 CAL 1,000 ML BOTTLE GT PRN (16:55)
--- NOTE | 2018-04-13 17:00 | NUR ---
RN NOTES NGT REINSERTED PER SKYLAR CUSTOMER SERVICE REPRESENTATIVE TEACHER ORDER , TF RESTARTED AT 20CC/HR AT THIS TIME , PT TRANSFERRED TO ROOM 114-1 KHALIDA STATUS , CONTINUE TO MONITOR
--- NOTE | 2018-04-13 18:35 | NUR ---
RN NOTES PT ZURDO THE SAME , NO DISTRESS NOTED, WILL ENDORSE TO FACILITIES ENGINEER RN FOR TED
[2018-04-14] VITALS: BP 109/65
[2018-04-14 04:00] VITALS: BP 109/53
[2018-04-14] MEDS: CEFTRIAXONE 1 G in IV D5W 50 ML IV SCH (04:11)
[2018-04-14] MEDS: IV D5/0.45 NACL 1,000 ML IV PRN ×2 (06:00→21:38)
[2018-04-14] MEDS: JEVITY 1.2 CAL 1,000 ML BOTTLE GT PRN (06:00)
[2018-04-14 06:21] LABS: BASOPHILS % (AUTO) 0.4 % (0.0-2.0); EOSINOPHILS % (AUTO) 4.1 % (0.0-6.0); HEMATOCRIT 22 % (33-45); HEMOGLOBIN 7.5 g/dL (11.5-14.8); LYMPHOCYTES # (AUTO) 1.2 /CMM (0.8-4.8); MEAN CORPUSCULAR HGB CONC 34 g/dl (31.0-36.0); MEAN CORPUSCULAR VOLUME 113 fL (82-100); NEUTROPHILS # (AUTO) 3.6 /CMM (1.8-8.9); NEUTROPHILS % (AUTO) 59.5 % (43.0-81.0); PLATELET COUNT (AUTO) 91 /CMM (150-450); RDW COEFFICIENT OF VARIATION 15.6 (11.5-15.0)
[2018-04-14 06:29] LABS: CALCIUM, SERUM 7.3 mg/dL (8.5-10.1); CREATININE 0.3 mg/dL (0.6-1.3); MAGNESIUM 1.5 mg/dL (1.8-2.4); PHOSPHORUS 3.7 mg/dL (2.5-4.9); POTASSIUM 3.6 mmol/L (3.5-5.1)
--- NOTE | 2018-04-14 06:35 | NUR ---
RN CLOSING NOTE PT REMAINS IN NO ACUTE DISTRESS IN BED. PT DID NOT HAVE ANY SIGNIFICANT CHANGE IN CONDITION DURING SHIFT. ALL NEEDS MET, ALL ORDERS CARRIED OUT. PT TOLERATED TUBE FEEDING WELL. FEEDING INCREASED TO 30 ML/HR TOWARDS GOAL OF 50ML/HR. WILL ENDORSE CARE TO AM RN FOR CONTINUITY OF CARE.
[2018-04-14 06:51] LABS: RED BLOOD CELL COUNT(AUTO) 1.94 MIL/uL (4.0-5.2)
--- NOTE | 2018-04-14 07:07 | NUR ---
RN NOTES RECEIVED PT ON BED, A/Ox1, CONFUSED , ON 5L O2 N/C ,RESPIRATION EVEN AND UNLABORED, ON TELE SR, HR IN 80'S , JEVITY AT 30CC/HR RUNNING VIA NGT , TOLERATING WELL, NO RESIDUAL NOTED, MCDONALD DRINING TO GRAVITY WITH YELLOW URINE, L WRIST RESTRAIN ON FOR PT SAFETY , L UPPER ARM PICC LINE SITE CDI, WITH D51/2 NS AT 75CC/HR RUNNING . SR UP X3, CALL LIGHT WITHIN EASY REACH, BED LOCKED AND IN LOWEST POSITION , BED ALARM ON , CONTINUE TO MONITOR PT CLSOELY .
[2018-04-14 08:00] VITALS: BP 138/73
[2018-04-14] MEDS: NICOTINE PATCH (14MG) 14 MG PATCH.TD24 TD SCH (08:03)
[2018-04-14] MEDS: LACTULOSE 10 G/15 ML UDC (PYXIS) PO SCH ×2 (08:03→20:58)
[2018-04-14] MEDS: PANTOPRAZOLE 40 MG VIAL IV SCH ×2 (08:03→16:14)
[2018-04-14] MEDS: SUCRALFATE 1 G/10 ML UDC GT SCH ×4 (08:03→20:58)
[2018-04-14] MEDS: RIFAXIMIN 550 MG TABLET PO SCH ×2 (08:03→16:14)
[2018-04-14] MEDS: Z GUARD REMEDY 2 OZ OINT TP SCH (08:05)
[2018-04-14] MEDS: Magnesium 1GM/D5W 100ML PREMIX 100 ML IV SCH ×3 (09:46→12:33)
[2018-04-14 10:35] LABS: BAND % (MANUAL) 1 % (0.0-5.0); EOSINOPHILS % (MANUAL) 8 % (0-4); LYMPHOCYTES % (MANUAL) 21 % (16-48); MONOCYTES % (MANUAL) 15 % (0-11.0); NEUTROPHILS % (MANUAL) 55 (42-76)
--- NOTE | 2018-04-14 10:35 | NUR ---
RN NOTES NGT D/CARLEEN PER DICK NELSON TO MONITOR SWALLOWING .
[2018-04-14 12:00] VITALS: BP 120/61
--- NOTE | 2018-04-14 15:00 | NUR ---
RN NOTES TAMARA D/CARLEEN PER MD ORDER .
[2018-04-14 16:00] VITALS: BP 120/61
--- NOTE | 2018-04-14 18:00 | NUR ---
RN NOTES PT VOIDED x1 PER DIAPER , VSS STABLE , L UPPER ARM MIDLINE CDI, SR UP X3, CALL LIGHT WITHIN EASY REACH, WILL ENDOSE TO OBSTETRICS GYNECOLOGY PHYSICIAN NURSE FOR TED.
--- NOTE | 2018-04-14 19:36 | NUR ---
NOC ENGINEER NOTES RECEIVED PT ON BED. A/OX2 WITH CONFUSION. ON TELE MONITOR ST 98. IV ACCESS ON L UPPER ARM PICC D51/2 NS @75CC/HR. BED ALARM ON. HEAD OF BED ELEVATED. SIDE RAILS UP. CALL LIGHT IS PLACED WITHIN REACH. WILL CONTINUE TO MONITOR PT CLOSELY.
[2018-04-14 20:00] VITALS: BP 120/57
[2018-04-15] VITALS: BP 109/84
[2018-04-15] MEDS: CEFTRIAXONE 1 G in IV D5W 50 ML IV SCH (01:38)
[2018-04-15 04:00] VITALS: BP 129/61
--- NOTE | 2018-04-15 06:36 | NUR ---
VALET NOTES NO ACUTE CHANGES NOTED DURING THE SHIFT. PROVIDED COMFORT AND SAFETY. DUE MEDS GIVEN. WILL ENDORSE TO THE AM NURSE FOR TED.
--- NOTE | 2018-04-15 07:30 | NUR ---
RECEIVED PT. IN AM ORIENTED X2,PLEASANT.VS STABLE.
--- NOTE | 2018-04-15 07:40 | NUR ---
RECEIVED PT. IN AM,ALERT AND ORIENTED X3.IV INFUSING,VS STABLE.PALAUAN SPEAKING ONLY. Addendum: 04/15/18 at 1903 by LISA HERNANDEZ RN ABOVE NOTE ON INCORRECT PT.
[2018-04-15 08:00] VITALS: BP 129/51
[2018-04-15] MEDS: SUCRALFATE 1 G/10 ML UDC GT SCH ×4 (10:22→21:00)
[2018-04-15] MEDS: PANTOPRAZOLE 40 MG VIAL IV SCH ×2 (10:22→17:22)
[2018-04-15] MEDS: RIFAXIMIN 550 MG TABLET PO SCH ×2 (10:23→17:22)
[2018-04-15] MEDS: LACTULOSE 10 G/15 ML UDC (PYXIS) PO SCH ×2 (10:23→21:00)
[2018-04-15] MEDS: NICOTINE PATCH (14MG) 14 MG PATCH.TD24 TD SCH (10:23)
[2018-04-15] MEDS: Z GUARD REMEDY 2 OZ OINT TP SCH (10:24)
--- NOTE | 2018-04-15 11:30 | NUR ---
DENISE DUQUE CALLING SEVERAL TIMES AWARE ATTEMTING TO DC PT. AWAITING BED AT [facility].
[2018-04-15 12:00] VITALS: BP 128/52
--- NOTE | 2018-04-15 13:00 | NUR ---
CALL TO SON REGARDING DISCHARGE OF [employer] HE WILL PICK HER UP AFTER HE LEAVES WORK. Addendum: 04/15/18 at 1904 by LISA HERNANDEZ RN ABOVE NOTE ON INCORRECT PT.
[2018-04-15 16:00] VITALS: BP 127/52
[2018-04-15] MEDS: LORAZEPAM INJ 2 MG/ML VIAL IV PRN ×2 (18:35→21:00)
--- NOTE | 2018-04-15 18:52 | NUR ---
VERY CONFUSED UP AND DOWN-EASILY AGITATED,GIVEN ATIVAN IV PER MD ORDERS.
--- NOTE | 2018-04-15 19:35 | NUR ---
SYSTEMS APPLICATIONS PROGRAMMING LEAD OPENING NOTES RECEIVED REPORT FROM LISA BARRIGA. PATIENT A/A/O X1 TO NAME W/ CONFUSION & RESTLESSNESS NOTED. BREATHING EVEN & UNLABORED, TOLERATING ROOM AIR. PATIENT CONTINUOUSLY TAKE OFF NC. ON TELE W/ SINUS RHYTHM, HR 92. NO RESPIRATORY OR CARDIAC DISTRESS NOTED. LEFT UPPER ARM PICC LINE INTACT & PATENT W/ DRESSING CDI & IVF D5 1/2 NS INFUSING WELL @ 75 ML/HR. NO S/S OF ANY PAIN OR DISCOMFORT @ THIS TIME. SAFETY MEASURES IN PLACE W/ SIDE RAILS UP, BED LOCKED & IN LOWEST POSITION & BED ALARM ON. PATIENT KEEPS TRYING TO GET OUT OF BED. WILL CONTINUE TO MONITOR CLOSELY.
[2018-04-15 20:00] VITALS: BP 139/62
[2018-04-16] VITALS: BP 158/66
[2018-04-16] MEDS: CEFTRIAXONE 1 G in IV D5W 50 ML IV SCH (02:28)
[2018-04-16] MEDS: IV D5/0.45 NACL 1,000 ML IV PRN (02:29)
[2018-04-16 04:00] VITALS: BP 146/67
--- NOTE | 2018-04-16 07:30 | NUR ---
HEMMER AUTOMATIC NOTE: RECEIVED PATIENT IN BED, AWAKE, ALERT AND VERBALLY RESPONSIVE. ON O2 4L/MIN VIA NC SATURATING 96%. NO SHORTNESS OF BREATH. TENDS TO FORGET, BUT FREQUENT REORIENTATION WAS EFFECTIVE. (L) UA PICC LINE WAS NOTED INTACT AND PATENT. ON CONSOLE ATTENDANT, ST HR= 104. HOB ELEVATED. BED ALARMED AND LOCKED AT ALL TIMES. CALL LIGHT WITHIN REACH. NEEDS ANTICIPATED.
[2018-04-16 08:00] VITALS: BP 143/82
[2018-04-16] MEDS: SUCRALFATE 1 G/10 ML UDC GT SCH ×3 (08:29→16:40)
[2018-04-16] MEDS: LACTULOSE 10 G/15 ML UDC (PYXIS) PO SCH (08:38)
[2018-04-16] MEDS: RIFAXIMIN 550 MG TABLET PO SCH ×2 (08:38→16:40)
[2018-04-16] MEDS: PANTOPRAZOLE 40 MG VIAL IV SCH ×2 (08:38→16:41)
[2018-04-16] MEDS: NICOTINE PATCH (14MG) 14 MG PATCH.TD24 TD SCH (08:38)
[2018-04-16] MEDS: Z GUARD REMEDY 2 OZ OINT TP SCH (08:43)
[2018-04-16 10:03] LABS: ABG BASE EXCESS 5.1 mmol/L; ABG OXYGEN SATURATION 84.7 % (92.0-98.5); ABG PCO2 44.9 mmHg (35.0-45.0); ABG PO2 53.5 mmHg (75.0-100.0); AaDO2 42.5 mmHg; COHb 0.3 % (0.5-1.5); MetHb 0.4 % (0.0-1.5); O2Hb 84.1 % (94.0-97.0); SITE, ABG Left Radial; VENT MODE, BG room air
[2018-04-16 16:00] VITALS: BP 149/66
--- NOTE | 2018-04-16 19:00 | NUR ---
MS RN NOTE: PATIENT WAS DISCHARGED TO [facility] [place] AND WAS PICKED UP BY 2 PARKING OFFICER OF [facility] VIA GURNEY. PATIENT WAS ALERT, ORIENTED AND ABLE TO MAKE HER NEEDS KNOWN, TENDS TO FORGET, BUT FREQUENT RE-ORIENTATION WAS EFFECTIVE. (L) UA PICC LINE WAS REMOVED APPLIED DRY GAUZE AND PRESSURE WAS APPLIED SECURED WITH TAPE. DISCHARGE PACKET WAS GIVEN [facility] AND INFORMED THEM THAT NITHYA SALDANA AT THE FACILITY WAS AWARE OF THE PATIENT'S ADMISSION TO THEIR FACILITY. AND PATIENT IS GOING TO ROOM 1A IN THE FACILITY. A STUFF ANIMAL (CAT) WAS RELEASED WITH THE PATIENT. CALLED AND LEFT A MESSAGE TO JULIETADUNIA/SISTER ([phone]) AND INFORMED HER ABOUT THE PATIENT'S DISCHARGE TO THE FACILITY ([facility] TONIGHT. EXIT CARE WAS DONE.
== END 2018-04-16 19:00 | DRG 208 ==
LOC: ER 14:33 → TELE-TD 17:59 → ICU 18:54 → TELE-TD 04-13 16:37 → TELE1 04-14 13:43 → MEDSG1 04-16 12:04
PROVIDERS: ADMIT Internal Medicine; ATTEND Internal Medicine
PROC: 5A1945Z Respiratory Ventilation, 24-96 Consecutive Hours (ICD-10-PCS; principal; 2018-04-08)
PROC: 0BH17EZ Insertion of Endotracheal Airway into Trachea, Via Natural or Artificial Opening (ICD-10-PCS; 2018-04-08)
PROC: 0DB98ZX Excision of Duodenum, Via Natural or Artificial Opening Endoscopic, Diagnostic (ICD-10-PCS; 2018-04-10)
PROC: 0DB68ZX Excision of Stomach, Via Natural or Artificial Opening Endoscopic, Diagnostic (ICD-10-PCS; 2018-04-10)
PROC: 0DB58ZX Excision of Esophagus, Via Natural or Artificial Opening Endoscopic, Diagnostic (ICD-10-PCS; 2018-04-10)
PROC: 02HV33Z Insertion of Infusion Device into Superior Vena Cava, Percutaneous Approach (ICD-10-PCS; 2018-04-10)
PROC: B548ZZA Ultrasonography of Superior Vena Cava, Guidance (ICD-10-PCS; 2018-04-10)
DX: J96.01 Acute respiratory failure with hypoxia (principal); E43 Unspecified severe protein-calorie malnutrition; G92 Toxic encephalopathy; E72.20 Disorder of urea cycle metabolism, unspecified; E87.2 Acidosis; K72.90 Hepatic failure, unspecified without coma; E87.0 Hyperosmolality and hypernatremia; K26.9 Duodenal ulcer, unspecified as acute or chronic, without hemorrhage or perforation; D62 Acute posthemorrhagic anemia; N39.0 Urinary tract infection, site not specified; J96.02 Acute respiratory failure with hypercapnia; R74.0 Nonspecific elevation of levels of transaminase and lactic acid dehydrogenase [LDH]; Z98.1 Arthrodesis status; Z88.6 Allergy status to analgesic agent; Z79.899 Other long term (current) drug therapy; Z82.49 Family history of ischemic heart disease and other diseases of the circulatory system; B96.89 Other specified bacterial agents as the cause of diseases classified elsewhere; K20.9 Esophagitis, unspecified; K29.70 Gastritis, unspecified, without bleeding; E03.9 Hypothyroidism, unspecified; E83.42 Hypomagnesemia; E87.6 Hypokalemia; E83.39 Other disorders of phosphorus metabolism; F03.90 Unspecified dementia, unspecified severity, without behavioral disturbance, psychotic disturbance, mood disturbance, and anxiety
CPT/HCPCS: 31720; 36415; 36569; 36600; 70450-TC; 71045-TC; 72125-TC; 73060-TC; 76700-TC; 80048-TC; 80053-TC; 80061-TC; 80076-TC; 80305; 81000-TC; 82140-TC; 82272-TC; 82803-TC; 83605-TC; 83735-TC; 84100-TC; 84443-TC; 84484-TC; 85025-TC; 85730-TC; 87040-TC; 87081-TC; 87086-TC; 87186-TC; 88305-TC; 88313-TC; 88342; 92526; 92611-TC; 94002-TC; 94003-TC; 94762-TC; 94799-TC; 97116-TC; 97530-TC; A4606; A6402; C9113; G0480; J0696; J1200; J1630; J2060; J2354; J2405; J2543; J2704; J3370; J3475; J3480; J3490; J7030; J7042; J7050; J7060; Z7610